=== PATIENT | male | born 1975 | race Caucasian/White ===

== ENCOUNTER 2018-05-02 22:52 | Emergency (ER) | payer BC ==
[~2018-05-02] VITALS: Ht 172.7 cm; Wt 94.7 kg
[2018-05-02 22:58] VITALS: Ht 172.7 cm; Wt 94.7 kg
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
[2018-05-03 04:12] VITALS: BP 152/107; PULSE 74; RESP 20
== END 2018-05-03 04:15 | disposition home or self-care (01) ==
LOC: FTE 22:52
DX: R22.0 Localized swelling, mass and lump, head (principal)
CPT/HCPCS: 76536